=== PATIENT | male | born 1960 | race African-American/Black ===

== ENCOUNTER 2018-03-21 02:11 | Emergency (ER) | payer MEDICARE, OTHER ==
[~2018-03-21] VITALS: Ht 170.2 cm; Wt 91.0 kg
[~2018-03-21 02:11] MED LIST: ALBU18HF2 IH; AMLO10TA80 PO; ASPI-1159 PO; CYCL5TAB PO; FURO20TA4 PO; HYDR-2510 PO; HYDR-4135 PO; HYDR-519 PO; ISOS20TA8 PO; LOSA50TA3 PO; OMEP20TA2 PO
[2018-03-21] MEDS ORDERED: KETOROLAC 60MG/2ML VIAL IM ONE (06:15)
[2018-03-21 07:35] VITALS: BP 140/80
== END 2018-03-21 07:36 | disposition home or self-care (01) ==
LOC: ER 02:11
DX: M54.12 Radiculopathy, cervical region (principal); J44.9 Chronic obstructive pulmonary disease, unspecified; I10 Essential (primary) hypertension; F17.200 Nicotine dependence, unspecified, uncomplicated; F12.10 Cannabis abuse, uncomplicated; Z79.82 Long term (current) use of aspirin
CPT/HCPCS: 96372; 99283; J1885

== ENCOUNTER 2018-08-16 06:39 | Inpatient (IN) | payer MEDICARE, OTHER ==
[~2018-08-16] VITALS: Ht 165.1 cm; Wt 89.8 kg
[2018-08-16] MEDS ORDERED: PREDNISONE 20MG TABLET PO ONE (07:30)
[2018-08-16] MEDS ORDERED: IPRATROPIUM/ALBUTEROL 0.5-3(2.5)MG/3ML NEB HHN ONE (07:30)
[2018-08-16 08:44] LABS: CHLORIDE 106 mEq/L (98-107)
[2018-08-16] MEDS ORDERED: ALBUTEROL (0.083%) 2.5MG/3ML NEB HHN ONE (08:45)
[2018-08-16 08:51] LABS: BASOPHILS % 0.5 % (0.0-2.0); EOSINOPHILS % 2.6 % (0.0-5.0); HEMATOCRIT. 42.7 % (42.0-52.0); HEMOGLOBIN. 14.2 g/dL (14.0-18.0); LYMPHOCYTES % 15.7 % (20.0-50.0); MEAN CORPUSCULAR HEMOGLOBIN 32.5 pg (28.0-32.0); MEAN CORPUSCULAR VOLUME 97.9 fL (80.0-94.0); MEAN PLATELET VOLUME 7.5 fl (7.4-10.4); MONOCYTES % 6.5 % (2.0-8.0); NEUTROPHILS % 74.7 % (40.0-76.0); PLATELET 247 x1000/uL (130-400); RED BLOOD CELL COUNT 4.37 mill/uL (4.7-6.1); RED CELL DISTRIBUTION WIDTH 13.1 % (11.6-14.6)
[2018-08-16] MEDS ORDERED: FUROSEMIDE 40MG/4ML VIAL IVP ONE (09:15)
[2018-08-16] MEDS ORDERED: ASPIRIN 81MG TABLET PO ONE (09:15)
[2018-08-16 09:23] LABS: CLARITY URINE CLEAR (CLEAR); COLOR URINE YELLOW (YELLOW); KETONES URINE NEGATIVE (NEGATIVE); LEUKOCYTE ESTERASE URINE NEGATIVE (NEGATIVE); NITRITE URINE NEGATIVE (NEGATIVE); OCCULT BLOOD URINE NEGATIVE (NEGATIVE); PH URINE 6.5 (4.5-8.0); PROTEIN URINE 1+ (NEGATIVE); SPECIFIC GRAVITY URINE 1.019 (1.005-1.030); UROBILINOGEN URINE 0.2 E.U./dL (0.2-1.0)
[2018-08-16] MEDS ORDERED: ACETAMINOPHEN 325MG TABLET PO PRN ×2 (09:45→10:30)
[2018-08-16] MEDS ORDERED: DIPHENHYDRAMINE 50MG/ML VIAL IV PRN (10:30)
[2018-08-16] MEDS ORDERED: MORPHINE SULFATE 4 MG/ML CPJ (NOT FOR IM USE) IV PRN (10:30)
[2018-08-16] MEDS ORDERED: GUAIFENESIN 200MG/10ML SUGAR FREE UDC PO PRN (10:30)
[2018-08-16] MEDS ORDERED: DOCUSATE SODIUM 100MG CAPSULE PO PRN (10:30)
[2018-08-16] MEDS ORDERED: NA PHOS,M-B/NA PHOS,DI-BA ENEMA 118ML PR PRN (10:30)
[2018-08-16] MEDS ORDERED: CLONIDINE 0.1MG TABLET PO PRN (10:30)
[2018-08-16] MEDS ORDERED: LORAZEPAM 2MG/ML CPJ IV PRN (10:30)
[2018-08-16] MEDS ORDERED: IPRATROPIUM/ALBUTEROL 0.5-3(2.5)MG/3ML NEB INH PRN (10:30)
[2018-08-16] MEDS ORDERED: MAGNESIUM/ALUMINUM HYDROXIDE/SIMETHICONE 30ML UDC PO PRN (10:30)
[2018-08-16] MEDS ORDERED: ONDANSETRON HCL 4MG/2ML INJ IV PRN (10:30)
[2018-08-16] MEDS ORDERED: HYDROCODONE/ACETAMINOPHEN 5/325MG TABLET PO PRN (10:30)
[2018-08-16 12:00] VITALS: BP 132/81
[2018-08-16] MEDS ORDERED: ENOXAPARIN 30MG/0.3ML SYR SUBCUT SCH (12:30)
[2018-08-16] MEDS ORDERED: LEVOFLOXACIN 500MG PREMIX 100 ML IV SCH (14:00)
[2018-08-16 14:03] VITALS: BP 132/81
[2018-08-16] MEDS ORDERED: METHYLPREDNISOLONE SOD SUCC 40 MG/ML VIAL IV SCH (15:00)
[2018-08-16 16:22] LABS: CHLORIDE 103 mEq/L (98-107)
[2018-08-16] MEDS ORDERED: CARVEDILOL 3.125 MG TABLET PO SCH (17:00)
[2018-08-17] MEDS ORDERED: ASPIRIN 81MG EC TABLET PO SCH (09:00)
[2018-08-17] MEDS ORDERED: LOSARTAN POTASSIUM 100 MG TABLET PO SCH (09:00)
[2018-08-17] MEDS ORDERED: FUROSEMIDE 40MG/4ML VIAL IV SCH (12:45)
== END 2018-08-16 15:05 | disposition left against medical advice (07) | DRG 291 ==
LOC: ER 08:03 → 8WST 09:34 → EDBEDREQ 09:37 → ENRESERV 10:59
PROVIDERS: ADMIT Internal Medicine; ATTEND Internal Medicine
DX: I11.0 Hypertensive heart disease with heart failure (principal); J96.00 Acute respiratory failure, unspecified whether with hypoxia or hypercapnia; J44.1 Chronic obstructive pulmonary disease with (acute) exacerbation; I50.43 Acute on chronic combined systolic (congestive) and diastolic (congestive) heart failure; D64.9 Anemia, unspecified; E26.9 Hyperaldosteronism, unspecified; F17.200 Nicotine dependence, unspecified, uncomplicated; I25.10 Atherosclerotic heart disease of native coronary artery without angina pectoris; I73.9 Peripheral vascular disease, unspecified; Z59.0 Homelessness; Z79.82 Long term (current) use of aspirin; Z79.899 Other long term (current) drug therapy
CPT/HCPCS: 36415; 71045; 80048; 80053; 81003; 83880; 84484; 85025; 93005; 94640; 96374; 99285; J1940; J1956; J7040; J7512; J7611; J7620

== ENCOUNTER 2021-10-22 00:22 | Inpatient (IN) | payer MEDICARE, OTHER ==
[~2021-10-22] VITALS: Ht 170.2 cm; Wt 99.8 kg
[~2021-10-22 00:22] MED LIST changes: -ASPI-1159 PO; +ASPI-1497 PO; -HYDR-2510 PO; +HYDR50TA PO
[2021-10-22] MEDS ORDERED: METHYLPREDNISOLONE SOD SUCC 125 MG/2 ML VIAL IV STA (01:29)
[2021-10-22] MEDS ORDERED: IPRATROPIUM BROMIDE (0.02%) 0.5MG/2.5ML NEB HHN STA (01:29)
[2021-10-22] MEDS ORDERED: MAGNESIUM 2 G PREMIX 50 ML IV ONE (01:30)
[2021-10-22] MEDS: ALBUTEROL (0.083%) 2.5MG/3ML NEB HHN SCH ×3 (01:52→02:26)
[2021-10-22 02:02] LABS: BASOPHILS % 0.5 % (0.0-2.0); EOSINOPHILS % 1.9 % (0.0-5.0); HEMATOCRIT. 42.4 % (42.0-52.0); HEMOGLOBIN. 14.1 g/dL (14.0-18.0); LYMPHOCYTES % 8.5 % (20.0-50.0); MEAN CORPUSCULAR HEMOGLOBIN 31.9 pg (28.0-32.0); MEAN CORPUSCULAR VOLUME 95.7 fL (80.0-94.0); MEAN PLATELET VOLUME 7.7 fl (7.4-10.4); MONOCYTES % 5.2 % (2.0-8.0); NEUTROPHILS % 83.9 % (40.0-76.0); PLATELET 214 x1000/uL (130-400); RED BLOOD CELL COUNT 4.43 mill/uL (4.7-6.1); RED CELL DISTRIBUTION WIDTH 14.4 % (11.6-14.6)
[2021-10-22 02:08] LABS: CHLORIDE 103 mEq/L (98-107)
[2021-10-22] MEDS ORDERED: ACETAMINOPHEN 325MG TABLET PO PRN (09:00)
[2021-10-22] MEDS ORDERED: ONDANSETRON HCL 4MG/2ML INJ IV PRN (09:00)
[2021-10-22] MEDS: METHYLPREDNISOLONE SOD SUCC 40 MG/ML VIAL IV SCH ×2 (12:11→19:15)
[2021-10-22] MEDS: FAMOTIDINE 20MG TABLET PO SCH ×2 (12:11→21:10)
[2021-10-22 13:40] LABS: *BENZODIAZEPINES SCREEN URINE NEGATIVE (NEGATIVE)
[2021-10-22 13:41] LABS: *AMPHETAMINES SCREEN URINE PRESUMTIVE POSITIVE (NEGATIVE); *COCAINE SCREEN URINE NEGATIVE (NEGATIVE); CANNABINOID URINE SCREEN NEGATIVE (NEGATIVE); METHADONE URINE SCREEN NEGATIVE (NEGATIVE); OPIATES URINE SCREEN NEGATIVE (NEGATIVE); PHENCYCLIDINE URINE SCREEN NEGATIVE (NEGATIVE)
[2021-10-22 13:43] LABS: *BARBITURATES SCREEN URINE NEGATIVE (NEGATIVE)
[2021-10-22 17:58] VITALS: BP 170/97
[2021-10-22 18:00] VITALS: BP 170/97
[2021-10-22] MEDS ORDERED: TAMS-11 MT (18:14)
[2021-10-22] MEDS: HYDRALAZINE HCL 100MG TABLET PO SCH (19:15)
[2021-10-22 20:00] VITALS: BP 165/90
[2021-10-22] MEDS: IPRATROPIUM/ALBUTEROL 0.5-3(2.5)MG/3ML NEB HHN SCH (21:18)
[2021-10-23] VITALS: BP 167/79
[2021-10-23] MEDS: IPRATROPIUM/ALBUTEROL 0.5-3(2.5)MG/3ML NEB HHN SCH ×6 (00:40→20:53)
[2021-10-23] MEDS: METHYLPREDNISOLONE SOD SUCC 40 MG/ML VIAL IV SCH ×3 (03:18→18:39)
[2021-10-23 04:00] VITALS: BP 185/95
[2021-10-23] MEDS ORDERED: CLONIDINE 0.1MG TABLET PO PRN (05:15)
[2021-10-23 08:00] VITALS: BP 149/82
[2021-10-23] MEDS ORDERED: AMLODIPINE 10MG TABLET PO SCH (09:00)
[2021-10-23] MEDS: FAMOTIDINE 20MG TABLET PO SCH ×2 (09:47→20:35)
[2021-10-23] MEDS: HYDRALAZINE HCL 100MG TABLET PO SCH ×2 (09:47→18:40)
[2021-10-23] MEDS ORDERED: FUROSEMIDE 40MG/4ML VIAL IVP NR (16:00)
[2021-10-23] MEDS ORDERED: ENOXAPARIN 30MG/0.3ML SYR SUBCUT SCH (18:00)
[2021-10-23] MEDS ORDERED: GUAIFENESIN-DM 200MG-20MG/10ML UDC PO PRN (19:30)
[2021-10-23 20:00] VITALS: BP 141/84
[2021-10-23] MEDS ORDERED: GUAIFENESIN 600MG ER TABLET PO SCH (21:00)
== END 2021-10-23 23:36 | disposition left against medical advice (07) | DRG 291 ==
LOC: ER 00:44 → EDBEDREQTM 03:17 → EDBEDREQ 03:17 → ENRESERV 15:30 → 7EST 17:07
PROVIDERS: ADMIT Internal Medicine; ATTEND Internal Medicine
DX: I11.0 Hypertensive heart disease with heart failure (principal); J96.00 Acute respiratory failure, unspecified whether with hypoxia or hypercapnia; I50.43 Acute on chronic combined systolic (congestive) and diastolic (congestive) heart failure; J68.0 Bronchitis and pneumonitis due to chemicals, gases, fumes and vapors; E66.9 Obesity, unspecified; F15.90 Other stimulant use, unspecified, uncomplicated; F17.210 Nicotine dependence, cigarettes, uncomplicated; K21.9 Gastro-esophageal reflux disease without esophagitis; N40.0 Benign prostatic hyperplasia without lower urinary tract symptoms; Z68.34 Body mass index [BMI] 34.0-34.9, adult; Z53.29 Procedure and treatment not carried out because of patient's decision for other reasons; Z20.822 Contact with and (suspected) exposure to COVID-19
CPT/HCPCS: 36415; 71045; 80053; 80305; 83605; 83880; 84484; 85025; 85379; 87426; 93005; 94640; 94644; 99291; J1650; J1940; J2920; J2930; J3475

== ENCOUNTER 2021-10-30 21:39 | Emergency (ER) | payer OTHER ==
[~2021-10-30] VITALS: Ht 170.2 cm; Wt 91.0 kg
[~2021-10-30 21:39] MED LIST changes: +TAMS-11 MT
[2021-10-30 21:58] VITALS: BP 166/86
[2021-10-30] MEDS ORDERED: HYDROCODONE/ACETAMINOPHEN 5/325MG TABLET PO ONE (23:45)
[2021-10-31] MEDS ORDERED: ALBU6.7H9 INH (00:17)
[2021-10-31] MEDS ORDERED: BUDE6HFA INH (00:17)
== END 2021-10-31 00:26 | disposition home or self-care (01) ==
LOC: ER 21:39
DX: J44.9 Chronic obstructive pulmonary disease, unspecified (principal); G89.29 Other chronic pain; M54.9 Dorsalgia, unspecified; M54.2 Cervicalgia; Z20.2 Contact with and (suspected) exposure to infections with a predominantly sexual mode of transmission; I11.0 Hypertensive heart disease with heart failure; I50.9 Heart failure, unspecified
CPT/HCPCS: 71045; 99283

== ENCOUNTER 2021-12-13 02:53 | Inpatient (IN) | payer OTHER ==
[~2021-12-13] VITALS: Ht 170.2 cm; Wt 98.0 kg
[~2021-12-13 02:53] MED LIST changes: +ALBU6.7H9 INH; +BUDE6HFA INH
[2021-12-13 04:06] LABS: BASOPHILS % 0.9 % (0.0-2.0); EOSINOPHILS % 4.1 % (0.0-5.0); HEMATOCRIT. 40.2 % (42.0-52.0); HEMOGLOBIN. 13.1 g/dL (14.0-18.0); LYMPHOCYTES % 15.9 % (20.0-50.0); MEAN CORPUSCULAR HEMOGLOBIN 30.1 pg (28.0-32.0); MEAN CORPUSCULAR VOLUME 92.3 fL (80.0-94.0); MEAN PLATELET VOLUME 7.4 fl (7.4-10.4); MONOCYTES % 9.1 % (2.0-8.0); PLATELET 238 x1000/uL (130-400); RED BLOOD CELL COUNT 4.35 mill/uL (4.7-6.1); RED CELL DISTRIBUTION WIDTH 15.4 % (11.6-14.6)
[2021-12-13 04:15] LABS: CHLORIDE 107 mEq/L (98-107)
[2021-12-13 04:18] LABS: ETHANOL BLOOD < 10 mg/dL
[2021-12-13 05:32] LABS: *AMPHETAMINES SCREEN URINE PRESUMTIVE POSITIVE (NEGATIVE); *BARBITURATES SCREEN URINE NEGATIVE (NEGATIVE); *BENZODIAZEPINES SCREEN URINE NEGATIVE (NEGATIVE); *COCAINE SCREEN URINE NEGATIVE (NEGATIVE); METHADONE URINE SCREEN NEGATIVE (NEGATIVE); OPIATES URINE SCREEN NEGATIVE (NEGATIVE)
[2021-12-13 05:33] LABS: CANNABINOID URINE SCREEN PRESUMTIVE POSITIVE (NEGATIVE); PHENCYCLIDINE URINE SCREEN NEGATIVE (NEGATIVE)
[2021-12-13] MEDS ORDERED: SODIUM CHLORIDE 0.9% 1,000 ML IV ONE (06:30)
[2021-12-13] MEDS ORDERED: POTASSIUM CHLORIDE 20MEQ TABLET SR PO NR (11:00)
[2021-12-13 14:05] LABS: BG BASE EXCESS 5.4 mmol/L (-2.0-2.0); BG CARBOXYHEMOGLOBIN 0.6 % (0.5-1.5); BG DEOXYHEMOGLOBIN 1.1 % (0.0-5.0); BG FRACTION INSPIRED OXYGEN 21; BG HCO3 ACT 30.6 mmol/L (22.0-26.0); BG METHEMOGLOBIN 0.3 % (0.0-1.5); BG OXYGEN SATURATION 98.9 % (92.0-98.5); BG PCO2 46.9 mmHg (35.0-45.0); BG PH 7.433 (7.350-7.450); BG PO2 160.8 mmHg (75.0-100.0); BG SAMPLE SITE RIGHT RADIAL; BG VENT MODE ROOM AIR
[2021-12-13 18:00] VITALS: BP 135/92
[2021-12-13 18:26] VITALS: BP 135/92
[2021-12-13 19:42] VITALS: BP 157/89
== END 2021-12-13 20:45 | disposition short-term general hospital (02) | DRG 917 ==
LOC: ER 02:53 → 5WST 09:24 → ENRESERV 14:09
PROVIDERS: ADMIT Internal Medicine; ATTEND Internal Medicine
DX: T43.621A Poisoning by amphetamines, accidental (unintentional), initial encounter (principal); I50.43 Acute on chronic combined systolic (congestive) and diastolic (congestive) heart failure; G92.8 Other toxic encephalopathy; T43.641A Poisoning by ecstasy, accidental (unintentional), initial encounter; D64.9 Anemia, unspecified; E87.6 Hypokalemia; E88.09 Other disorders of plasma-protein metabolism, not elsewhere classified; Z20.822 Contact with and (suspected) exposure to COVID-19; I11.0 Hypertensive heart disease with heart failure; K21.9 Gastro-esophageal reflux disease without esophagitis; E66.9 Obesity, unspecified; F19.10 Other psychoactive substance abuse, uncomplicated; J44.9 Chronic obstructive pulmonary disease, unspecified; M47.812 Spondylosis without myelopathy or radiculopathy, cervical region; M48.00 Spinal stenosis, site unspecified; F10.20 Alcohol dependence, uncomplicated; Y90.9 Presence of alcohol in blood, level not specified; Z79.899 Other long term (current) drug therapy; Z79.84 Long term (current) use of oral hypoglycemic drugs; Z79.82 Long term (current) use of aspirin; Y92.89 Other specified places as the place of occurrence of the external cause; Z68.33 Body mass index [BMI] 33.0-33.9, adult; Z71.51 Drug abuse counseling and surveillance of drug abuser
CPT/HCPCS: 36415; 36600; 71045; 74176; 80053; 80305; 80320; 82375; 82805; 85025; 87426; 99285; J7030; G0480

== ENCOUNTER 2023-08-12 06:43 | Emergency (ER) | payer OTHER ==
[~2023-08-12] VITALS: Ht 175.3 cm; Wt 86.0 kg
[~2023-08-12 06:43] MED LIST changes: +ALBU6.7H3 INH; -ALBU6.7H9 INH; +LOSA-413 PO; -LOSA50TA3 PO; -OMEP20TA2 PO; +OMEP20TA23 PO
[2023-08-12 07:29] VITALS: BP 115/76; PULSE 89; RESP 20; O2SAT 100
[2023-08-12 09:15] VITALS: TEMP 98.5
[2023-08-12] MEDS ORDERED: ACETAMINOPHEN 325MG TABLET PO ONE (09:15)
[2023-08-12] MEDS ORDERED: GABA-532 MT (12:29)
[2023-08-12] MEDS ORDERED: IBUP-1525 MT (12:29)
[2023-08-12] MEDS ORDERED: TOPUD MT (12:29)
== END 2023-08-12 12:39 | disposition home or self-care (01) ==
LOC: ER 06:43
DX: M47.816 Spondylosis without myelopathy or radiculopathy, lumbar region (principal); F12.10 Cannabis abuse, uncomplicated; F15.10 Other stimulant abuse, uncomplicated; J45.909 Unspecified asthma, uncomplicated; I11.0 Hypertensive heart disease with heart failure; I50.9 Heart failure, unspecified; Z88.2 Allergy status to sulfonamides; Z88.8 Allergy status to other drugs, medicaments and biological substances; Z79.899 Other long term (current) drug therapy
CPT/HCPCS: 72100; 99283

== ENCOUNTER 2024-07-09 14:13 | Emergency (ER) | payer OTHER ==
[~2024-07-09] VITALS: Ht 172.7 cm; Wt 81.0 kg
[~2024-07-09 14:13] MED LIST changes: +GABA-532 MT; -HYDR-4135 PO; +HYDR50TA40 PO; +IBUP-1525 MT; +TOPUD MT
[2024-07-09 14:22] VITALS: BP 116/69; PULSE 73; RESP 18; TEMP 98.2; O2SAT 98
[2024-07-09] MEDS ORDERED: OCUFLX EACHEYE (16:28)
[2024-07-09] MEDS ORDERED: LORA10TA7 MT (16:29)
== END 2024-07-09 17:00 | disposition home or self-care (01) ==
LOC: ER 14:13
DX: H10.9 Unspecified conjunctivitis (principal); F12.10 Cannabis abuse, uncomplicated; F15.10 Other stimulant abuse, uncomplicated; F13.10 Sedative, hypnotic or anxiolytic abuse, uncomplicated; I25.2 Old myocardial infarction; I10 Essential (primary) hypertension; J45.909 Unspecified asthma, uncomplicated; Z88.2 Allergy status to sulfonamides; Z88.3 Allergy status to other anti-infective agents; Z79.899 Other long term (current) drug therapy; Z86.73 Personal history of transient ischemic attack (TIA), and cerebral infarction without residual deficits
CPT/HCPCS: 99283

== ENCOUNTER 2025-06-05 01:00 | Inpatient (IN) | payer OTHER ==
[~2025-06-05] VITALS: Ht 172.7 cm; Wt 93.4 kg
[~2025-06-05 01:00] MED LIST changes: -CYCL5TAB PO; +CYCL5TAB3 PO; +GABA-1180 MT; -GABA-532 MT; +LORA10TA7 MT; +OCUFLX EACHEYE; -TAMS-11 MT; +TAMS-54 MT
[2025-06-05 01:51] LABS: BASOPHILS % 0.8 % (0.0-2.0); EOSINOPHILS % 1.3 % (0.0-5.0); HEMATOCRIT. 42.2 % (42.0-52.0); HEMOGLOBIN. 14.1 g/dL (14.0-18.0); LYMPHOCYTES % 9.3 % (20.0-50.0); MEAN PLATELET VOLUME 8.3 fl (7.4-10.4); MONOCYTES % 6.7 % (2.0-8.0); NEUTROPHILS % 81.9 % (40.0-76.0); PLATELET 164 x1000/uL (130-400); RED BLOOD CELL COUNT 4.21 mill/uL (4.7-6.1); RED CELL DISTRIBUTION WIDTH 15.0 % (11.6-14.6)
[2025-06-05 02:00] LABS: INR 1.2
[2025-06-05 02:07] LABS: UREA NITROGEN BLOOD 48 mg/dL (9-23)
[2025-06-05 02:08] LABS: ETHANOL BLOOD < 10 mg/dL (<10)
[2025-06-05 02:09] LABS: ASPARTATE AMINOTRANSFERASE 42 IU/L (<34); BILIRUBIN DIRECT 0.8 mg/dL (<=3.0)
[2025-06-05 02:10] LABS: BILIRUBIN TOTAL 1.9 mg/dL (0.1-1.0); PROTEIN TOTAL 6.1 g/dL (6.0-8.3)
[2025-06-05 02:16] LABS: CREATININE 2.2 mg/dL (0.6-1.3)
[2025-06-05 02:17] LABS: TROPONIN I HIGH SENSITIVITY 57 ng/L (3.0-53)
[2025-06-05] MEDS: FUROSEMIDE 40MG/4ML VIAL IV ONE (02:34)
[2025-06-05] MEDS: MORPHINE SULFATE 4 MG/ML INJ (FOR IV/IM USE) IV ONE (02:35)
[2025-06-05] MEDS: NITROGLYCERIN 0.4MG TABLET SL SL PRN (02:35)
[2025-06-05 03:36] LABS: *AMPHETAMINES SCREEN URINE PRESUMPTIVE POSITIVE (NEGATIVE); *BARBITURATES SCREEN URINE NEGATIVE (NEGATIVE); *BENZODIAZEPINES SCREEN URINE NEGATIVE (NEGATIVE); *COCAINE SCREEN URINE NEGATIVE (NEGATIVE); METHADONE URINE SCREEN NEGATIVE (NEGATIVE); OPIATES URINE SCREEN PRESUMPTIVE POSITIVE (NEGATIVE)
[2025-06-05 03:37] LABS: CANNABINOID URINE SCREEN NEGATIVE (NEGATIVE); ECSTASY MDMA SCREEN URINE CONF.TEST INDICATED (NEGATIVE); PHENCYCLIDINE URINE SCREEN NEGATIVE (NEGATIVE)
[2025-06-05 04:22] LABS: TROPONIN I HIGH SENSITIVITY 52 ng/L (3.0-53)
[2025-06-05] MEDS: KCL 20MEQ/100ML PREMIX 100 ML IV SCH (05:15)
[2025-06-05] MEDS: POTASSIUM CHLORIDE 20MEQ TABLET SR PO NR (05:15)
[2025-06-05] MEDS: ZIPRASIDONE MESYLATE 20MG/VIAL IM ONE (05:37)
[2025-06-05 08:00] VITALS: BP 118/81; PULSE 73; RESP 18; TEMP 36.1; TEMP 36.14; O2SAT 95
[2025-06-05] MEDS ORDERED: IPRATROPIUM/ALBUTEROL 0.5-3(2.5)MG/3ML NEB NEB PRN (10:30)
[2025-06-05] MEDS ORDERED: CLONIDINE 0.1MG TABLET PO PRN (10:30)
[2025-06-05] MEDS ORDERED: ACETAMINOPHEN 325MG TABLET PO PRN (10:30)
[2025-06-05] MEDS: ENOXAPARIN 40MG/0.4ML SYR SUBCUT SCH (11:22)
[2025-06-05] MEDS: METHYLPREDNISOLONE SOD SUCC 40MG/ML (ACT-O-VIAL) IV SCH (11:23)
[2025-06-05 12:00] VITALS: BP 120/79; PULSE 80; RESP 20; TEMP 36.7; O2SAT 98
[2025-06-05 13:12] LABS: CREATINE KINASE MB FRACTION 2.3 ng/mL (0.5-3.6); TROPONIN I HIGH SENSITIVITY 49.0 ng/L (3.0-53)
[2025-06-05] MEDS: DEXT 5%/0.45% NACL 1000ML 1,000 ML IV SCH (15:58)
[2025-06-05 16:00] VITALS: BP 119/85; PULSE 74; RESP 18; TEMP 36.4; O2SAT 95
[2025-06-05 17:58] LABS: HEMATOCRIT. 40.8 % (42.0-52.0); HEMOGLOBIN. 13.3 g/dL (14.0-18.0); MEAN PLATELET VOLUME 8.5 fl (7.4-10.4); PLATELET 146 x1000/uL (130-400); RED BLOOD CELL COUNT 4.01 mill/uL (4.7-6.1); RED CELL DISTRIBUTION WIDTH 15.2 % (11.6-14.6)
[2025-06-05] MEDS: POTASSIUM CHLORIDE 20MEQ/PACKET PO SCH (18:05)
[2025-06-05 18:16] LABS: LYMPHOCYTES % MANUAL 2.0 % (20.0-50.0); MONOCYTES % MANUAL 2.0 % (2.0-8.0); NEUTROPHILS % MANUAL 96.0 % (45.0-75.0); PLATELET ESTIMATE NORMAL
[2025-06-05 18:19] LABS: TROPONIN I HIGH SENSITIVITY 42 ng/L (3.0-53)
[2025-06-05 20:00] VITALS: BP 116/83; PULSE 71; RESP 20; TEMP 36.8; O2SAT 100
[2025-06-05 22:10] LABS: CREATINE KINASE MB FRACTION 2.3 ng/mL (0.5-3.6); TROPONIN I HIGH SENSITIVITY 36.0 ng/L (3.0-53)
[2025-06-05] MEDS: IPRATROPIUM/ALBUTEROL 0.5-3(2.5)MG/3ML NEB HHN PRN (23:50)
[2025-06-05 23:53] VITALS: PULSE 93; RESP 24; O2SAT 98
[2025-06-06] VITALS (7 sets, daily range): BP systolic 92–111; BP diastolic 57–83; PULSE 60–101; RESP 18–28; TEMP 36.3–37.2; O2SAT 95–100
[2025-06-06] MEDS: THIAMINE HCL 100MG TABLET PO SCH (08:47)
[2025-06-06 08:52] LABS: HEMATOCRIT. 45.7 % (42.0-52.0); HEMOGLOBIN. 14.5 g/dL (14.0-18.0); MEAN PLATELET VOLUME 8.9 fl (7.4-10.4); PLATELET 163 x1000/uL (130-400); RED BLOOD CELL COUNT 4.32 mill/uL (4.7-6.1); RED CELL DISTRIBUTION WIDTH 16.1 % (11.6-14.6)
[2025-06-06 08:59] LABS: CREATININE 2.5 mg/dL (0.6-1.3)
[2025-06-06 09:00] LABS: CREATINE KINASE MB FRACTION 2.3 ng/mL (0.5-3.6); TROPONIN I HIGH SENSITIVITY 33 ng/L (3.0-53); UREA NITROGEN BLOOD 49 mg/dL (9-23)
[2025-06-06 09:02] LABS: PHOSPHORUS 3.4 mg/dL (2.5-4.9)
[2025-06-06 12:47] LABS: TROPONIN I HIGH SENSITIVITY 32 ng/L (3.0-53)
[2025-06-06] MEDS ORDERED: NALOXONE HCL 0.4MG/ML VIAL IV PRN (16:45)
[2025-06-06] MEDS: MAGNESIUM 1 G PREMIX 100 ML IV SCH (17:00)
[2025-06-06 17:14] LABS: LYMPHOCYTES % MANUAL 4.0 % (20.0-50.0); MONOCYTES % MANUAL 4.0 % (2.0-8.0); NEUTROPHILS % MANUAL 92.0 % (45.0-75.0)
[2025-06-06 17:15] LABS: PLATELET ESTIMATE NORMAL
[2025-06-06] MEDS: PANTOPRAZOLE SODIUM 40 MG/VIAL IV SCH (23:20)
[2025-06-06] MEDS: DIPHENHYDRAMINE 50MG/ML VIAL IV PRN (23:21)
[2025-06-06] MEDS: ONDANSETRON HCL 4MG/2ML INJ IV PRN (23:22)
[2025-06-07 00:26] VITALS: BP 107/84; PULSE 86; RESP 20; TEMP 36.9; O2SAT 96
[2025-06-07 04:00] VITALS: BP 109/65; PULSE 83; RESP 20; TEMP 37.2; O2SAT 96
[2025-06-07 08:00] VITALS: BP 140/78; PULSE 87; RESP 20; TEMP 36.7; O2SAT 100
[2025-06-07] MEDS: FUROSEMIDE 40MG/4ML VIAL IVP SCH (10:08)
[2025-06-07] MEDS: MORPHINE SULFATE 2 MG/ML INJ (NOT FOR IM USE) IV PRN (10:09)
[2025-06-07] MEDS: DOCUSATE SODIUM 100MG CAPSULE PO PRN (10:09)
[2025-06-07] MEDS: METHYLPREDNISOLONE SOD SUCC 40MG/ML (ACT-O-VIAL) IV SCH (10:09)
[2025-06-07 12:00] VITALS: BP 137/66; PULSE 84; RESP 20; TEMP 36.7; O2SAT 100
[2025-06-07] MEDS: AMLODIPINE 2.5MG TABLET PO SCH ×2 (13:37→21:37)
[2025-06-07 16:00] VITALS: BP 130/73; PULSE 87; RESP 20; TEMP 36.6; O2SAT 100
[2025-06-07] MEDS ORDERED: IPRATROPIUM/ALBUTEROL 0.5-3(2.5)MG/3ML NEB HHN SCH (18:00)
[2025-06-07 20:19] VITALS: BP 132/84; PULSE 79; RESP 18; TEMP 36.7; O2SAT 96
[2025-06-07] MEDS: ATORVASTATIN CALCIUM 10MG TABLET PO SCH (21:37)
[2025-06-08] VITALS (7 sets, daily range): BP systolic 99–145; BP diastolic 69–98; PULSE 68–98; RESP 18–22; TEMP 35.8–36.6; O2SAT 95–100
[2025-06-08 07:32] LABS: CREATININE 3.2 mg/dL (0.6-1.3); UREA NITROGEN BLOOD 73 mg/dL (9-23)
[2025-06-08 07:35] LABS: HEMATOCRIT. 44.1 % (42.0-52.0); HEMOGLOBIN. 15.1 g/dL (14.0-18.0); MEAN PLATELET VOLUME 9.0 fl (7.4-10.4); PLATELET 224 x1000/uL (130-400); RED BLOOD CELL COUNT 4.36 mill/uL (4.7-6.1); RED CELL DISTRIBUTION WIDTH 15.5 % (11.6-14.6)
[2025-06-08] MEDS: ASPIRIN 81MG EC TABLET PO SCH (09:30)
[2025-06-08] MEDS: SODIUM ZIRCONIUM CYCLOSILICATE 10GM/PACKET PO SCH (09:30)
[2025-06-08] MEDS: CLOPIDOGREL 75MG TABLET PO SCH (09:31)
[2025-06-08] MEDS: MULTIVITAMINS,THER W-MINERALS TABLET PO SCH (09:32)
[2025-06-08 17:28] LABS: LYMPHOCYTES % MANUAL 3.0 % (20.0-50.0); MONOCYTES % MANUAL 1.0 % (2.0-8.0); NEUTROPHILS % MANUAL 96.0 % (45.0-75.0); PLATELET ESTIMATE NORMAL
[2025-06-08] MEDS: LACTULOSE 20G/30ML UDC PO SCH (17:49)
[2025-06-09] VITALS: BP 112/79; PULSE 64; RESP 20; TEMP 36.3; O2SAT 100
[2025-06-09 01:30] VITALS: PULSE 97; RESP 20; O2SAT 96
[2025-06-09 04:00] VITALS: BP 119/91; PULSE 69; RESP 19; TEMP 36.1; O2SAT 95
[2025-06-09 08:00] VITALS: BP 108/80; PULSE 73; RESP 20; TEMP 36.1; O2SAT 100
[2025-06-09] MEDS: METHYLPREDNISOLONE SOD SUCC 40MG/ML (ACT-O-VIAL) IV SCH (09:00)
[2025-06-09 12:00] VITALS: BP 116/84; PULSE 72; RESP 20; TEMP 36.3; O2SAT 100
== END 2025-06-09 13:56 | disposition left against medical advice (07) | DRG 917 ==
LOC: ER 01:00 → EDBEDREQTM 05:26 → EDBEDREQ 05:26 → ENRESERV 06:10 → 7WST 07:52 → UNDODISIN 06-08 13:15 → 7EST 06-08 19:28
PROVIDERS: ADMIT Internal Medicine Nephrology; ATTEND Internal Medicine Nephrology
DX: T43.621A Poisoning by amphetamines, accidental (unintentional), initial encounter (principal); G92.8 Other toxic encephalopathy; J96.21 Acute and chronic respiratory failure with hypoxia; I13.0 Hypertensive heart and chronic kidney disease with heart failure and stage 1 through stage 4 chronic kidney disease, or unspecified chronic kidney disease; J44.1 Chronic obstructive pulmonary disease with (acute) exacerbation; N17.9 Acute kidney failure, unspecified; I42.9 Cardiomyopathy, unspecified; N18.30 Chronic kidney disease, stage 3 unspecified; M79.604 Pain in right leg; F15.10 Other stimulant abuse, uncomplicated; F10.10 Alcohol abuse, uncomplicated; F14.90 Cocaine use, unspecified, uncomplicated; K59.00 Constipation, unspecified; I45.10 Unspecified right bundle-branch block; I49.3 Ventricular premature depolarization; I49.1 Atrial premature depolarization; L98.492 Non-pressure chronic ulcer of skin of other sites with fat layer exposed; I48.91 Unspecified atrial fibrillation; E11.22 Type 2 diabetes mellitus with diabetic chronic kidney disease; I34.0 Nonrheumatic mitral (valve) insufficiency; E87.5 Hyperkalemia; K21.9 Gastro-esophageal reflux disease without esophagitis; E78.5 Hyperlipidemia, unspecified; F17.210 Nicotine dependence, cigarettes, uncomplicated; Z53.29 Procedure and treatment not carried out because of patient's decision for other reasons; Z86.73 Personal history of transient ischemic attack (TIA), and cerebral infarction without residual deficits; Z88.2 Allergy status to sulfonamides; Z79.899 Other long term (current) drug therapy; Z79.02 Long term (current) use of antithrombotics/antiplatelets; Z79.82 Long term (current) use of aspirin; Y92.89 Other specified places as the place of occurrence of the external cause
CPT/HCPCS: 36415; 71045; 80048; 80076; 80305; 80320; 82550; 82553; 83735; 83880; 84100; 84132; 84484; 85025; 93005; 93306; 93970; 94070; 94640; 94760; 97162; 99285; A4606; J1200; J1650; J1938; J2270; J2405; J2470; J2919; J3475; J3480; J3486; G0480